=== PATIENT | male | born 1975 | race Caucasian/White ===

== ENCOUNTER 2019-08-23 08:21 | Emergency (ER) | payer BC ==
[~2019-08-23] VITALS: Ht 175.3 cm; Wt 114.3 kg
[2019-08-23] MEDS: OXYMETAZOLINE 0.05% NASAL SPRAY 15ML BOTTLE. NS ONE (08:25)
--- NOTE | 2019-08-23 09:03 | PHYS DOC ---
Adult General Chief Complaint Chief Complaint: NOSEBLEED HPI HPI Patient is a 44-year-old male brought in by ambulance with nosebleed onset while at work spontaneously has had history of this before apparently he was bleeding quite heavily currently under control and around to the emergency room note. He can identify blood pressure went down to 120 after the nosebleed stopped in the emergency room. I gave him Afrin I checked his nares there was no active bleeding there was a site at [facility] plexus that look like it had recently bled Review of Systems Review of Systems Constitutional: Denies fever or chills [] Eyes: Denies change in visual acuity, redness, or eye pain [] HENT: Musculoskeletal: Denies back pain or joint pain [] Integument: Denies rash or skin lesions [] Neurologic: Denies headache, focal weakness or sensory changes [] Endocrine: Denies polyuria or polydipsia [] All other systems were reviewed and found to be within normal limits, except as documented in this note. Current Medications Current Medications Current Medications Medications (Trade) Dose Ordered Sig/Randee Start Time Stop Time Status Last Admin Dose Admin Oxymetazoline HCl (Afrin) 2 spray 1X ONCE 08/23/19 08:30 08/23/19 08:33 DC 08/23/19 08:25 2 SPRAY Allergies Allergies Allergies Coded Allergies Type Severity Reaction Last Updated Verified No Known Drug Allergies 08/23/19 No Physical Exam Physical Exam Constitutional: Well developed, well nourished, no acute distress, non-toxic appearance. [] HENT: Normocephalic, atraumatic, bilateral external ears normal, oropharynx moist, no oral exudates, nose dry blood in the left malar [place] spoke social colectomy recently bled but there is a scabbed there are no masses seen Eyes: PERRLA, EOMI, conjunctiva normal, no discharge. [] Neck: Normal range of motion, no tenderness, supple, no stridor. [] Abdomen: Bowel sounds normal, soft, no tenderness, no masses, no pulsatile masses. [] Skin: Warm, dry, no erythema, no rash. [] Extremities: No tenderness, no cyanosis, no clubbing, ROM intact, no edema. [] Neurologic: Alert and oriented X 3, normal motor function, normal sensory function, no focal deficits noted. [] Psychologic: Affect normal, judgement normal, mood normal. [] EKG EKG [] Radiology/Procedures Radiology/Procedures [] Course & Med Decision Making Course & Med Decision Making Pertinent Labs and Imaging studies reviewed. (See chart for details) []See history of present illness for ED course Dragon Disclaimer Dragon Disclaimer This electronic medical record was generated, in whole or in part, using a voice recognition dictation system. Departure Departure: Impression: Primary Impression: Susan Disposition: 01 HOME, SELF-CARE Condition: STABLE Patient Instructions: Susan, Naxk-en-Lvyw KAM BLANCA MD Aug 23, 2019 09:03
[2019-08-23 10:13] VITALS: BP 129/79
== END 2019-08-23 10:14 | disposition home or self-care (01) ==
LOC: ER 08:21
DX: R04.0 Epistaxis (principal)
CPT/HCPCS: 30901; 99284